=== PATIENT | female | born 1995 | race Caucasian/White ===

== ENCOUNTER 2022-11-25 01:34 | Emergency (ER) | payer SELFPAY ==
[~2022-11-25] VITALS: Ht 167.6 cm; Wt 110.0 kg
[2022-11-25 01:45] VITALS: BP 145/71
== END 2022-11-25 02:51 | disposition home or self-care (01) ==
LOC: EMS 01:34
DX: S01.01XA Laceration without foreign body of scalp, initial encounter (principal); F17.210 Nicotine dependence, cigarettes, uncomplicated; X58.XXXA Exposure to other specified factors, initial encounter; Y93.89 Activity, other specified; Y92.89 Other specified places as the place of occurrence of the external cause; Y99.8 Other external cause status
CPT/HCPCS: 12002; 99282; Z7502

== ENCOUNTER 2022-12-02 18:38 | Emergency (ER) | payer SELFPAY ==
[~2022-12-02] VITALS: Ht 170.2 cm; Wt 110.0 kg
[2022-12-02 19:00] VITALS: BP 138/77
== END 2022-12-02 19:17 | disposition still patient (30) ==
LOC: EMS 18:38
DX: S01.01XD Laceration without foreign body of scalp, subsequent encounter (principal); F17.210 Nicotine dependence, cigarettes, uncomplicated; Z48.02 Encounter for removal of sutures; W19.XXXD Unspecified fall, subsequent encounter
CPT/HCPCS: 99281; Z7502